=== PATIENT | female | born 1940 | race Caucasian/White ===

== ENCOUNTER 2017-03-21 11:03 | Day surgery (SDC) | payer OTHER ==
[~2017-03-21] VITALS: Ht 172.7 cm; Wt 93.9 kg
[~2017-03-21 11:03] MED LIST: AQUASOL E PO; ASPIR 8181 M1 PO; Ascorbic Acid,Ester- PO; BISOPROLOL FUMAR5 MG PO; CALTRATE 600 +1 EAC1 PO; CARDIZEM CD,CA240 M1 PO; CENTRUM SILV1 TABLE1 PO; D-VERT25 MG PO; DULCOLAX10 MG PR; Dulcolax PO; FISH OIL 1,0001 EAC7 PO; Feosol PO; LEXAPRO20 MG PO; LIPITOR10 MG PO; Maalox, Mylanta PO; Milk Of Magnesia,MOM PO; Oyst-Cal D, Oscal W/ PO; SENOKOT S,PE1 TABLET PO; TIAZAC240 M1 PO; Tylenol Regular Stre PO; Vicodin,Norco 5/325 PO; Xarelto PO; Zebeta PO; celeXA PO
== END 2017-03-21 15:20 | disposition home or self-care (01) ==
LOC: CATH 11:03
DX: Z45.010 Encounter for checking and testing of cardiac pacemaker pulse generator [battery] (principal); I44.2 Atrioventricular block, complete; I10 Essential (primary) hypertension; E11.9 Type 2 diabetes mellitus without complications; R55 Syncope and collapse; E78.5 Hyperlipidemia, unspecified; Z79.82 Long term (current) use of aspirin
CPT/HCPCS: C1785; J0690; J1200; J2250; J3010; S0020